=== PATIENT | male | born 1950 | race Caucasian/White ===

== ENCOUNTER 2019-06-06 10:13 | Observation (INO) | payer MEDICARE ==
[~2019-06-06] VITALS: Ht 180.3 cm; Wt 72.7 kg
[2019-06-06] MEDS ORDERED: SODIUM CHLORIDE 0.9% 1,000 ML IV SCH (10:49)
[2019-06-06] MEDS ORDERED: SACU1TAB PO (10:59)
[2019-06-06] MEDS ORDERED: SACU1TAB7 PO (10:59)
[2019-06-06] MEDS ORDERED: SACU1TAB4 PO (10:59)
[2019-06-06] MEDS ORDERED: PLEASE ENTER HEIGHT AND WEIGHT MC SCH (11:00)
[2019-06-06] MEDS ORDERED: HYDR-3342 PO (11:02)
[2019-06-06] MEDS ORDERED: ISOS30TA21 PO (11:02)
[2019-06-06] MEDS ORDERED: SPIR25TA5 PO (11:02)
[2019-06-06] MEDS ORDERED: METO25TA91 PO (11:02)
[2019-06-06 11:07] VITALS: BP 151/85
[2019-06-06] MEDS ORDERED: SODIUM CHLORIDE 0.9% 1,000 ML IV ONE (11:30)
[2019-06-06] MEDS ORDERED: FENTANYL PF 250 MCG/5ML ONE (11:46)
[2019-06-06] MEDS ORDERED: MIDAZOLAM 1 MG/ML, 2ML ONE (11:46)
[2019-06-06 11:48] LABS: BASOPHILS % (AUTO) 0 % (0-1); EOSINOPHILS # (AUTO) 0.04 x10^3/uL (0-0.4); EOSINOPHILS % (AUTO) 1 % (1-7); LYMPHOCYTES # (AUTO) 0.49 x10^3/uL (1-3.4); LYMPHOCYTES % (AUTO) 6 % (22-44); MD NO; MEAN CORPUSCULAR HEMOGLOBIN 32.1 pg (27.5-34.5); MEAN CORPUSCULAR HGB CONC 33.5 g/dL (33.2-36.2); MEAN CORPUSCULAR VOLUME 95.7 fL (81-97); MEAN PLATELET VOLUME 8.2 fL (7.4-10.4); MONOCYTES # (AUTO) 0.64 x10^3/uL (0.2-0.8); MONOCYTES % (AUTO) 8 % (2-9); NEUTROPHILS # (AUTO) 7.08 x10^3/uL (1.8-6.8); NEUTROPHILS % (AUTO) 86 % (42-75); PLATELET COUNT 243 x10^3/uL (130-400); RED BLOOD COUNT 4.96 x10^6/uL (4.38-5.82); RED CELL DISTRIBUTION WIDTH 14.1 % (9.4-14.8)
[2019-06-06] MEDS ORDERED: DEXAMETHASONE 4 MG/ML, 1ML ONE ×2 (11:49)
[2019-06-06] MEDS ORDERED: PROPOFOL 10 MG/ML, 20ML ONE (11:49)
[2019-06-06] MEDS ORDERED: SUCCINYLCHOLINE 20 MG/ML, 10ML ONE (11:50)
[2019-06-06] MEDS ORDERED: ROCURONIUM 10MG/ML,5ML ONE (11:50)
[2019-06-06 11:59] LABS: ANION GAP 7 mmol/L (5-15); CHLORIDE 110 mmol/L (98-107); CREATININE 1.17 mg/dL (0.7-1.3)
[2019-06-06] MEDS ORDERED: LIDOCAINE 1%, 20ML ONE (13:00)
[2019-06-06] MEDS ORDERED: ADENOSINE 6 MG/2 ML ONE ×2 (13:25)
[2019-06-06] MEDS ORDERED: HEPARIN 1,000 UNITS/ML, 10ML ONE ×3 (14:00→14:46)
[2019-06-06] MEDS ORDERED: ISOPROTERENOL 0.2MG/ML, 5ML ONE (14:42)
[2019-06-06 14:45] VITALS: BP 120/65
[2019-06-06] MEDS ORDERED: VASOPRESSIN 20 UNIT/ML, 1ML ONE ×2 (15:38)
[2019-06-06] MEDS ORDERED: LABETALOL 5MG/ML, 20ML IV PRN (17:00)
[2019-06-06] MEDS ORDERED: HALOPERIDOL 5 MG/ML IV PRN (17:00)
[2019-06-06] MEDS ORDERED: FENTANYL PF 100 MCG/2ML IV PRN (17:00)
[2019-06-06] MEDS ORDERED: MEPERIDINE/PF 25MG/ML,1ML IVPush PRN (17:00)
[2019-06-06] MEDS ORDERED: ONDANSETRON 2MG/ML, 2ML IV PRN (17:00)
[2019-06-06] MEDS ORDERED: hydrALAzine 20 MG/ML, 1ML IV PRN (17:00)
[2019-06-06] MEDS ORDERED: HYDROmorphone 2 MG/ML, 1ML IVPush PRN (17:00)
[2019-06-06] MEDS ORDERED: EPHEDRINE 50 MG/ML, 1ML IVPush PRN (17:00)
[2019-06-06] MEDS ORDERED: MIDAZOLAM 1 MG/ML, 2ML IV PRN (17:00)
[2019-06-06] MEDS ORDERED: ONDANSETRON ODT 8 MG PO PRN (17:00)
[2019-06-06] MEDS ORDERED: DIAZEPAM 5 MG/ML, 2ML IVPush PRN (17:00)
[2019-06-06] MEDS ORDERED: ALBUTEROL SULFATE 2.5 MG/3 ML NPPB PRN (17:00)
[2019-06-06] MEDS ORDERED: OXYcodone 5 MG/5 ML ORAL.SOL UDC PO PRN (17:00)
[2019-06-06] MEDS ORDERED: ACETAMINOPHEN 325 MG TABLET PO PRN (17:00)
[2019-06-06] MEDS ORDERED: PROMETHAZINE 25 MG/ML, 1ML IV PRN (17:00)
[2019-06-06] MEDS ORDERED: PROMETHAZINE 12.5 MG SUPP PR PRN (17:00)
[2019-06-06] MEDS ORDERED: MEPERIDINE/PF 25MG/ML,1ML ONE (17:26)
[2019-06-06 18:50] VITALS: BP 124/74
[2019-06-06] MEDS: VALSARTAN PO SCH (21:00)
[2019-06-06] MEDS: SACUBITRIL PO SCH (21:00)
[2019-06-06] MEDS: SPIRONOLACTONE 25 MG TABLET PO SCH (21:56)
[2019-06-06 21:57] VITALS: BP 138/83
[2019-06-06] MEDS: ISOSORBIDE DINITRATE 30 MG TABLET PO SCH (21:57)
[2019-06-07 00:01] VITALS: BP 133/79
[2019-06-07] MEDS ORDERED: ASPIRIN 81 MG TABLET EC PO SCH (06:00)
[2019-06-07 08:18] VITALS: BP 127/71
[2019-06-07] MEDS ORDERED: REGADENOSON 0.4 MG/5 ML SYRINGE ONE (08:37)
[2019-06-07] MEDS ORDERED: METOPROLOL SUCCINATE 25 MG TAB.ER.24H PO SCH (09:00)
[2019-06-07] MEDS: SPIRONOLACTONE 25 MG TABLET PO SCH (10:10)
[2019-06-07] MEDS: VALSARTAN PO SCH (10:11)
[2019-06-07] MEDS: SACUBITRIL PO SCH (10:11)
[2019-06-07] MEDS: ISOSORBIDE DINITRATE 30 MG TABLET PO SCH (12:32)
== END 2019-06-07 15:02 | disposition home or self-care (01) ==
LOC: CACL 10:13 → 5SO 14:45 → ORIP 15:09 → 5SO 16:41 → CACL 23:10 → DCLOUNGE 06-07 14:47
PROVIDERS: ADMIT Internal Medicine Cardiovascular Disease; ATTEND Internal Medicine Cardiovascular Disease
DX: I42.9 Cardiomyopathy, unspecified (principal); I50.22 Chronic systolic (congestive) heart failure; I44.7 Left bundle-branch block, unspecified; I47.2 Ventricular tachycardia; Z87.74 Personal history of (corrected) congenital malformations of heart and circulatory system
CPT/HCPCS: 36415; 78452; 80048; 85025; 85347; 93005; 93017; 93306; 93312; 93321; 93325; 93462; 93613; 93621; 93623; 93653; 93662; A9502; C1730; C1759; C1766; C1893; C1894; C2630; C9898; G0378; J0153; J0330; J1100; J1644; J2250; J2704; J2785; J3010; J3490